=== PATIENT | male | born 1995 ===

== ENCOUNTER 2017-11-05 10:14 | Inpatient (IN) | payer OTHER ==
[2017-11-05] MEDS ORDERED: Nicotine Inhaler* 10 MG AMP ONE (12:55)
[2017-11-05] MEDS ORDERED: Mouth Piece, Nicotine* 1 EACH CARTRIDGE ONE (12:55)
[2017-11-05 15:06] LABS: ABS Basophils 0 10^3/ul (0-0.2); ABS Eosinophils 0.1 10^3/ul (0-0.6); ABS Lymphocytes 1.4 10^3/ul (1.0-4.8); ABS Monocytes 0.4 10^3/ul (0-0.8); ABS Neutrophils 2.2 10^3/ul (1.5-7.7); ABS Nucleated RBC 0 10^3/ul; Eosinophil % 1.9 % (0-6); Hematocrit 46 % (42-52); Hemoglobin 15.9 g/dl (14.0-18.0); Mean Corpuscular HGB Conc 35 g/dl (31-36); Mean Corpuscular Hemoglobin 30 pg (27-31); Mean Corpuscular Volume 87 fL (80-94); Mean Platelet Volume 8.4 um3 (7.4-10.4); Nucleated Red Blood Cells % 0.2; Platelet Count 251 10^3/ul (150-450); Red Blood Count 5.29 10^6/ul (4.00-5.40); Red Cell Distribution Width 12 % (10.5-15); White Blood Count 4.2 10^3/ul (3.5-10.8)
[2017-11-05 15:09] LABS: EGFR Non-African American 101.6 (>60)
--- NOTE | 2017-11-05 15:24 | ED ---
Psychiatric Complaint - HPI Summary HPI Summary: This patient is a 22 year old M presenting to [facility] with a chief complaint of SI with a plan since 11/04/17 PM. Pt was in a session with his psychologist today , and referred him. He notes that he planned to jump off a bridge. PMHx depression and anxiety, rx antidepressants, but he denies sx alleviation. He denies previous suicide attempt. Patient denies drug use. - History Of Current Complaint Chief Complaint: EDMentalHealth Time Seen by Provider: 11/05/17 10:15 Hx Obtained From: Patient Onset/Duration: Lasting Hours, Still Present Timing: Constant Severity Initially: Moderate Severity Currently: Moderate Character: Depressed Aggravating Factor(s): Nothing Alleviating Factor(s): Nothing Associated Signs And Symptoms: Positive: Negative Related History: Positive For: Prior Psychiatric Issues Has Suicidal: Reports: Thoughts, With A Plan. Denies: Has Prior Attempt(s) Has Homicidal: Denies: Thoughts - Allergies/Home Medications Allergies/Adverse Reactions: Allergies Allergy/AdvReac Type Severity Reaction Status Date / Time apple Allergy Unknown Hives/Diff. Verified 11/05/17 16:08 Breathing/I tching carrot Allergy Unknown Hives/Diff. Verified 11/05/17 16:08 Breathing/I tching kiwi Allergy Unknown Hives/Diff. Verified 11/05/17 16:08 Breathing/I tching peach Allergy Unknown Hives/Diff. Verified 11/05/17 16:07 Breathing/I tching potato Allergy Unknown Hives/Diff. Verified 11/05/17 16:08 Breathing/I tching PMH/Surg Hx/FS Hx/Imm Hx Endocrine/Hematology History: Denies: Hx Sickle Cell Disease Cardiovascular History: Denies: Hx Pacemaker/ICD Respiratory History: Denies: Hx Lung Cancer GI History: Denies: Hx Ileostomy History: Denies: Hx Dialysis Musculoskeletal History: Denies: Hx Osteoporosis Sensory History: Denies: Hx Legally Blind, Hx Deafness Opthamlomology History: Denies: Hx Legally Blind EENT History: Denies: Hx Deafness Neurological History: Denies: Hx Dementia Psychiatric History: Reports: Hx Anxiety, Hx Depression Infectious Disease History: No Infectious Disease History: Denies: Traveled Outside the [place] in Last 30 Days - Family History Known Family History: Negative: Hypertension, Diabetes - Social History Occupation: Student Alcohol Use: Occasionally Hx Substance Use: No Substance Use Type: Reports: None Hx Tobacco Use: Yes Smoking Status (MU): Light Every Day Tobacco Smoker Review of Systems Negative: Fever Positive: no symptoms reported Positive: Depressed, Other - SI with plan All Other Systems Reviewed And Are Negative: Yes Physical Exam - Summary Physical Exam Summary: VITAL SIGNS: Reviewed. GENERAL: Patient is a well-developed and nourished male who is lying comfortable in the stretcher. Patient is not in any acute respiratory distress. HEAD AND FACE: No signs of trauma. No ecchymosis, hematomas or skull depressions. No sinus tenderness. EYES: PERRLA, EOMI x 2, No injected conjunctiva, no nystagmus. EARS: Hearing grossly intact. Ear canals and tympanic membranes are within normal limits. MOUTH: Oropharynx within normal limits. NECK: Supple, trachea is midline, no adenopathy, no JVD, no carotid bruit, no c- spine tenderness, neck with full ROM. CHEST: Symmetric, no tenderness at palpation LUNGS: Clear to auscultation bilaterally. No wheezing or crackles. CVS: Regular rate and rhythm, S1 and S2 present, no murmurs or gallops appreciated. ABDOMEN: Soft, non-tender. No signs of distention. No rebound no guarding, and no masses palpated. Bowel sounds are normal. EXTREMITIES: FROM in all major joints, no edema, no cyanosis or clubbing. NEURO: Alert and oriented x 3. No acute neurological deficits. Speech is normal and follows commands. SKIN: Dry and warm Triage Information Reviewed: Yes Vital Signs On Initial Exam: Initial Vitals Temp Pulse Resp BP Pulse Ox 98.7 F 79 18 112/76 98 11/05/17 10:41 11/05/17 10:41 11/05/17 10:41 11/05/17 10:41 11/05/17 10:41 Vital Signs Reviewed: Yes Diagnostics - Vital Signs Vital Signs Temp Pulse Resp BP Pulse Ox 11/05/17 10:41 98.7 F 79 18 112/76 98 - Laboratory Lab Results: Lab Results 11/05/17 11/05/17 Range/Units 10:24 10:24 WBC 4.2 (3.5-10.8) 10^3/ul RBC 5.29 (4.00-5.40) 10^6/ul Hgb 15.9 (14.0-18.0) g/dl Hct 46 (42-52) % MCV 87 (80-94) fL MCH 30 (27-31) pg MCHC 35 (31-36) g/dl RDW 12 (10.5-15) % Plt Count 251 (150-450) 10^3/ul MPV 8.4 (7.4-10.4) um3 Neut % (Auto) 52.9 (38-83) % Lymph % (Auto) 34.0 (25-47) % Laporte % (Auto) 10.1 H (0-7) % Eos % (Auto) 1.9 (0-6) % Baso % (Auto) 1.1 (0-2) % Absolute Neuts (auto) 2.2 (1.5-7.7) 10^3/ul Absolute Lymphs (auto) 1.4 (1.0-4.8) 10^3/ul Absolute Monos (auto) 0.4 (0-0.8) 10^3/ul Absolute Eos (auto) 0.1 (0-0.6) 10^3/ul Absolute Basos (auto) 0 (0-0.2) 10^3/ul Absolute Nucleated RBC 0 10^3/ul Nucleated RBC % 0.2 Sodium 138 (135-145) mmol/L Potassium 4.1 (3.5-5.0) mmol/L Chloride 107 (101-111) mmol/L Carbon Dioxide 23 (22-32) mmol/L Anion Gap 8 (2-11) mmol/L BUN 16 (6-24) mg/dL Creatinine 0.93 (0.67-1.17) mg/dL Est GFR ( Amer) 122.9 (>60) Est GFR (Non-Af Amer) 101.6 (>60) BUN/Creatinine Ratio 17.2 (8-20) Glucose 90 (70-100) mg/dL Calcium 9.9 (8.6-10.3) mg/dL Total Bilirubin 0.60 (0.2-1.0) mg/dL AST 14 (13-39) U/L ALT 13 (7-52) U/L Alkaline Phosphatase 85 (34-104) U/L Total Protein 7.5 (6.4-8.9) g/dL Albumin 4.8 (3.2-5.2) g/dL Globulin 2.7 (2-4) g/dL Albumin/Globulin Ratio 1.8 (1-3) TSH Pending Salicylates < 2.50 (<30) mg/dL Acetaminophen < 15 mcg/mL Serum Alcohol < 10 (<10) mg/dL Result Diagrams: 11/05/17 10:24 11/05/17 10:24 Lab Statement: Any lab studies that have been ordered have been reviewed, and results considered in the medical decision making process. Course/Dx - Course Course Of Treatment: This patient is a 22 year old M presenting to [facility] with a chief complaint of SI with a plan since 11/04/17 PM. Pt was in a session with his psychologist today, and referred him. He notes that he planned to jump off a bridge. PMHx depression and anxiety, rx antidepressants, but he denies sx alleviation. He denies previous suicide attempt. Patient denies drug use. In the ED course, the pateint was given a nicotine inhaler. Patients labs were normal except for a high mono %. Pt was admitted with a dx depression NOS by Dr. Murillo. - Differential Dx/Clinical Impression Differential Diagnosis/HQI/PQRI: Positive: Anxiety, Depression, Homicidal Ideation Provider Diagnosis: Depression - Physician Notifications Discussed Care Of Patient With: Roberto Murillo Time Discussed With Above Provider: 12:00 Instructed by Provider To: Other - Per DIGNA Morrow, Pt is to be admitted on involuntary status with a dx of depression NOS. Discharge - Sign-Out/Discharge Documenting (check all that apply): Patient Departure - admit - Discharge Plan Condition: Fair Disposition: PSYCHIATRIC FACILITY-[facility] - Billing Disposition and Condition Condition: FAIR Disposition: Psychiatric Facility [facility] - Attestation Statements Document Initiated by Scribe: Yes Documenting Scribe: Jarett Huerta Provider For Whom Trace is Documenting (Include Credential): Dr. Gianni Deshpande MD Scribe Attestation: Jarett Pitts scribed for Dr. Gianni Deshpande MD on 11/06/17 at 1516. Scribe Documentation Reviewed: Yes Provider Attestation: The documentation as recorded by the Jarett disla accurately reflects the service I personally performed and the decisions made by me, Dr. Gianni Deshpande MD
[2017-11-05] MEDS ORDERED: Acetaminophen TAB* 325 MG PO PRN (16:07)
[2017-11-05] MEDS ORDERED: Nicotine GUM* 2 MG PO PRN (16:07)
[2017-11-05] MEDS ORDERED: Al Hydrox/Mg Hydrox/Simet LIQ* 30 ML UDC PO PRN (16:07)
[2017-11-05] MEDS ORDERED: Mouth Piece, Nicotine* 1 EACH CARTRIDGE INH SCH (16:07)
[2017-11-05] MEDS: Citalopram TAB* 20 MG PO SCH (21:35)
[2017-11-06] MEDS: Vitamin THERAPEUTIC TAB PO SCH (09:45)
[2017-11-06] MEDS: Citalopram TAB* 20 MG PO SCH (09:45)
[2017-11-06 13:03] LABS: Urine Appearance Clear; Urine Blood Negative (Negative); Urine Color Yellow; Urine Ketones Trace (Negative); Urine Protein Negative (Negative); Urine Specific Gravity 1.023 (1.010-1.030); Urine Urobilinogen Negative (Negative)
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
[2017-11-06] MEDS: Nicotine Inhaler* 10 MG AMP INH PRN (19:45)
[2017-11-06] MEDS: hydrOXYzine HCL TAB* 50 MG PO PRN (20:29)
[2017-11-06] MEDS: Mirtazapine TAB* 15 MG PO SCH (20:30)
[2017-11-07] MEDS: Vitamin THERAPEUTIC TAB PO SCH (09:39)
[2017-11-07] MEDS: Nicotine Inhaler* 10 MG AMP INH PRN (15:14)
[2017-11-07] MEDS: hydrOXYzine HCL TAB* 50 MG PO PRN (21:30)
[2017-11-07] MEDS: Mirtazapine TAB* 15 MG PO SCH (21:30)
[2017-11-08] MEDS: Vitamin THERAPEUTIC TAB PO SCH (09:29)
[2017-11-08] MEDS: Nicotine Inhaler* 10 MG AMP INH PRN ×2 (14:29→20:15)
--- NOTE | 2017-11-08 16:49 | PN ---
Subjective - Subjective Date of Service: 11/08/17 Service Type: 78053 Hosp care 15 min low complexity Subjective: Rolly appears to be doing a little better with improved mood and decreased anxiety and no active SI. Engaged with select peers on the unit and compliant with meds. Says his sleep and appetite is better with current meds. No side effect reported. Objective - Appearance Appearance: Healthy Appearing, Thin Framed Dysmorphic Features: No Hygiene: Normal Grooming: Well Kept - Behavior Psychomotor Activities: Normal Exhibits Abnormal Movement: No - Attitude and Relatedness Attitude and Relatedness: Appropriate Eye Contact: Good - Speech Quality: Unpressured Latencies: Normal Quantity: Appropriate - Mood Patient's Decription of Mood: "Fine" - Affect Observed Affect: Good Affect Consistent with: Euthymia - Thought Process Patient's Thought Process: Coherent, Goal Directed Thought Content: No Passive Wish, No Suicidal Planning, No Homicidal Ideation, No Paranoid Ideation - Sensorium Experiencing Hallucinations: No, Sensorium is Clear Type of Hallucinations: Visual: No, Auditory: No, Command: No - Impulse Control Impulse Control: Intact - Insight and Judgement Insight and Judgement: Fair - Group Participation Particating in Group Activities: Yes - Medication Management Medication Management Adherence: Yes Assessment - Assessment Merits Inpatient Hospitalization: For Immediate Safety, For Stabilization, Pending Safe DC Plan Clinical Impression: 22 y/o WM with h/o substance, depression and anxiety reports doing better on current treatments. Plan - Plan Treatment Plan: Name: ROLLY MACK Birthdate: 1995 [id number] Continued Medication Management: Continue Outpt Medication Medications: Current Medications Acetaminophen (Tylenol Tab*) 650 mg PO Q4H PRN PRN Reason: PAIN or TEMP > 101 F Al Hydrox/Mg Hydrox/Simethicone (Maalox Plus*) 30 ml PO Q4H PRN PRN Reason: INDIGESTION Device (Nicotine Mouth Piece*) 1 each INH .[facility] Hydroxyzine HCl (Atarax Tab*) 50 mg PO Q6H PRN PRN Reason: ANXIETY Last Admin: 11/07/17 21:30 Dose: 50 mg Mirtazapine (Remeron Tab*) 7.5 mg PO BEDTIME [facility] Last Admin: 11/07/17 21:30 Dose: 7.5 mg Multivitamins (Theragran Tab*) 1 tab PO DAILY [facility] Last Admin: 11/08/17 09:29 Dose: 1 tab Nicotine (Nicotine Inhaler*) 10 mg INH Q2H PRN PRN Reason: CRAVING Last Admin: 11/08/17 14:29 Dose: 10 mg Nicotine Polacrilex (Nicotine Gum*) 2 mg PO Q2H PRN PRN Reason: CRAVING - Discharge Plan Discharge Plan: Outpatient Follow Up Outpatient Program: Counseling/Psych Services at [facility]
[2017-11-08] MEDS: Mirtazapine TAB* 15 MG PO SCH (21:14)
[2017-11-08] MEDS: hydrOXYzine HCL TAB* 50 MG PO PRN (21:15)
[2017-11-09] MEDS: Vitamin THERAPEUTIC TAB PO SCH (08:53)
[2017-11-09] MEDS: Nicotine Inhaler* 10 MG AMP INH PRN ×2 (12:45→17:30)
--- NOTE | 2017-11-09 14:56 | PN ---
Subjective - Subjective Date of Service: 11/09/17 Service Type: 03730 Hosp care 15 min low complexity Subjective: Patient was seen by self, discussed with treatment team, chart was reviewed. Patient has been compliant with his medications, no reported side effects. Patient reports sleeping better and has been feeling somewhat better. 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 Patient has been participating in groups and more involved in the milieu. Patient sleeping has been better. Patient eating has been fair. Patient has been cooperative with staff. Patient behavior has been in control. Patient mood was less anxious and dysphoric and improvement in racing/suicidal thoughts. Patient has been reporting no suicidal or homicidal ideation. No psychotic symptoms of delusions or hallucinations. Patient was encouraged to contact family and communicate with his family. Patient reportedly did communicate with the family but awaiting release of information to be signed by patient to communicate with them. Objective - Appearance Appearance: Healthy Appearing Dysmorphic Features: No Hygiene: Normal Grooming: Fairly Well Kept - Behavior Psychomotor Activities: Normal Exhibits Abnormal Movement: No - Attitude and Relatedness Attitude and Relatedness: Appropriate Eye Contact: Fair - Speech Quality: Unpressured Latencies: Normal Quantity: Appropriate - Mood Patient's Decription of Mood: "Okay" - Affect Observed Affect: Tense - less Affect Consistent with: Dysphoria - Thought Process Patient's Thought Process: Coherent, Circumstantial Thought Content: No Passive Wish, No Suicidal Planning, No Homicidal Ideation, No Paranoid Ideation - Sensorium Experiencing Hallucinations: No, Sensorium is Clear Type of Hallucinations: Visual: No, Auditory: No, Command: No - Level of Consciousness Level of Consciousness: Alert Orientation: Yes Intact, Yes Orientated to Time, Yes Orientated to Place, Yes Orientated to Person - Impulse Control Impulse Control: Intact - Insight and Judgement Insight and Judgement: Impaired - but improving - Group Participation Particating in Group Activities: Yes - Medication Management Medication Management Adherence: Yes Assessment - Assessment Merits Inpatient Hospitalization: For Immediate Safety, For Stabilization, For Discharge Planning Inpatient DSM-V Dx: F32.9 Clinical Impression: 22 y/o WM with h/o substance, depression and anxiety reports doing better on current treatments. Plan - Plan Treatment Plan: Name: BOMO MACK Birthdate: 1995 [id number] - Patient continues to be hospitalized due to recent suicidal thoughts with plan , anxiety and impulsivity. - Patient's medications were adjusted after informed consent with increment in Remeron to 15 mg at bedtime, continue with Hydroxyzine PRN for anxiety. - Patient will be monitored for improvement and side effects. Risk and benefits were discussed. - Patient was encouraged to continue his participation in the milieu, group and individual therapy. Medications: Current Medications Acetaminophen (Tylenol Tab*) 650 mg PO Q4H PRN PRN Reason: PAIN or TEMP > 101 F Al Hydrox/Mg Hydrox/Simethicone (Maalox Plus*) 30 ml PO Q4H PRN PRN Reason: INDIGESTION Device (Nicotine Mouth Piece*) 1 each INH [facility] Hydroxyzine HCl (Atarax Tab*) 50 mg PO Q6H PRN PRN Reason: ANXIETY Last Admin: 11/08/17 21:15 Dose: 50 mg Mirtazapine (Remeron Tab*) 7.5 mg PO BEDTIME [facility] Last Admin: 11/08/17 21:14 Dose: 7.5 mg Multivitamins (Theragran Tab*) 1 tab PO DAILY [facility] Last Admin: 11/09/17 08:53 Dose: 1 tab Nicotine (Nicotine Inhaler*) 10 mg INH Q2H PRN PRN Reason: CRAVING Last Admin: 11/09/17 12:45 Dose: 10 mg Nicotine Polacrilex (Nicotine Gum*) 2 mg PO Q2H PRN PRN Reason: CRAVING
[2017-11-09] MEDS: Mirtazapine TAB* 15 MG PO SCH (20:23)
[2017-11-09] MEDS: hydrOXYzine HCL TAB* 50 MG PO PRN (20:23)
[2017-11-10] MEDS: Vitamin THERAPEUTIC TAB PO SCH (08:17)
[2017-11-10] MEDS: Nicotine Inhaler* 10 MG AMP INH PRN ×3 (09:52→17:49)
--- NOTE | 2017-11-10 13:48 | PN ---
Subjective - Subjective Date of Service: 11/10/17 Service Type: 37882 Hosp care 15 min low complexity Subjective: Patient was seen by self, discussed with treatment team, chart was reviewed. Patient has been compliant with his medications, no reported side effects. Patient reports sleeping and feeling. Patient was frustrated about being in the hospital and wanted to be discharged. 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 Patient has been participating in groups and involved in the milieu but feels a plateau in his treatment and preoccupied with his discharge. Patient did communicate with his father yesterday but reports that he kept some questions unanswered including the reason why he was hospitalized. Patient sleeping has been better. Patient eating has been fair. Patient has been cooperative with staff. Patient behavior has been in control with no self injurious behavior noted. Patient mood was less anxious and dysphoric. Patient has been reporting no suicidal or homicidal ideation. No psychotic symptoms of delusions or hallucinations. Patient has signed release of information to communicate with his family. Objective - Appearance Appearance: Healthy Appearing Hygiene: Normal Grooming: Fairly Well Kept - Behavior Psychomotor Activities: Normal Exhibits Abnormal Movement: No - Attitude and Relatedness Attitude and Relatedness: Superficially Cooperative Eye Contact: Fair - Speech Quality: Unpressured Latencies: Normal Quantity: Appropriate - Mood Patient's Decription of Mood: "frustrated" - Affect Observed Affect: Tense Affect Consistent with: Dysphoria - Thought Process Patient's Thought Process: Coherent Thought Content: No Passive Wish, No Suicidal Planning, No Homicidal Ideation, No Paranoid Ideation - Sensorium Experiencing Hallucinations: No, Sensorium is Clear Type of Hallucinations: Visual: No, Auditory: No, Command: No - Level of Consciousness Level of Consciousness: Alert Orientation: Yes Intact, Yes Orientated to Time, Yes Orientated to Place, Yes Orientated to Person - Impulse Control Impulse Control: Intact - Insight and Judgement Insight and Judgement: Poor - but improving - Group Participation Particating in Group Activities: Yes - Medication Management Medication Management Adherence: Yes Assessment - Assessment Merits Inpatient Hospitalization: For Immediate Safety, For Stabilization, For Discharge Planning Inpatient DSM-V Dx: F32.9 Clinical Impression: 22 y/o WM with h/o substance, depression and anxiety reports doing better on current treatments. Plan - Plan Treatment Plan: Name: BOOM MACK Birthdate: 1995 [id number] - Patient continues to be hospitalized due to recent suicidal thoughts with plan , anxiety and impulsivity. - Patient's medications were adjusted after informed consent with continuation of Remeron at 15 mg bedtime, continue with Hydroxyzine PRN for anxiety. - Patient will be monitored for improvement and side effects. Risk and benefits were discussed. - Patient was encouraged to continue his participation in the milieu, group and individual therapy. Medications: Current Medications Acetaminophen (Tylenol Tab*) 650 mg PO Q4H PRN PRN Reason: PAIN or TEMP > 101 F Al Hydrox/Mg Hydrox/Simethicone (Maalox Plus*) 30 ml PO Q4H PRN PRN Reason: INDIGESTION Device (Nicotine Mouth Piece*) 1 each INH .[facility] Hydroxyzine HCl (Atarax Tab*) 50 mg PO Q6H PRN PRN Reason: ANXIETY Last Admin: 11/09/17 20:23 Dose: 50 mg Mirtazapine (Remeron Tab*) 15 mg PO BEDTIME [facility] Last Admin: 11/09/17 20:23 Dose: 15 mg Multivitamins (Theragran Tab*) 1 tab PO DAILY [facility] Last Admin: 11/10/17 08:17 Dose: 1 tab Nicotine (Nicotine Inhaler*) 10 mg INH Q2H PRN PRN Reason: CRAVING Last Admin: 11/10/17 12:26 Dose: 10 mg Nicotine Polacrilex (Nicotine Gum*) 2 mg PO Q2H PRN PRN Reason: CRAVING
[2017-11-10] MEDS: Mirtazapine TAB* 15 MG PO SCH (20:37)
[2017-11-11 08:33] VITALS: BP 133/73
[2017-11-11] MEDS: Vitamin THERAPEUTIC TAB PO SCH (08:39)
[2017-11-11] MEDS: Nicotine Inhaler* 10 MG AMP INH PRN (10:43)
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
== END 2017-11-11 13:46 | disposition home or self-care (01) | DRG 885 ==
LOC: ED 10:14 → BSU 19:23
PROVIDERS: ADMIT Psychiatry & Neurology Psychiatry; ATTEND Psychiatry & Neurology Psychiatry
DX: F32.2 Major depressive disorder, single episode, severe without psychotic features (principal); R45.851 Suicidal ideations; F41.9 Anxiety disorder, unspecified; F10.10 Alcohol abuse, uncomplicated; F12.10 Cannabis abuse, uncomplicated; F14.11 Cocaine abuse, in remission; Y90.0 Blood alcohol level of less than 20 mg/100 ml; F17.200 Nicotine dependence, unspecified, uncomplicated; Z91.5 Personal history of self-harm; Z91.018 Allergy to other foods; Z81.8 Family history of other mental and behavioral disorders
CPT/HCPCS: 36415; 80053; 80061; 80307; 80320; 80329; 81003; 83036; 84443; 85025; 99222; 99231; 99238; 99283; A9270-GY; G0480